=== PATIENT | female | born 2000 | race Caucasian/White ===

== ENCOUNTER → 2024-09-18 09:56 | Outpatient (REF) | payer OTHER, SELFPAY ==
[2024-09-18 14:29] LABS: Hepatitis B Surface Antibody Indeterminate
== END ==
LOC: OHS 09:56
PROVIDERS: ATTENDING PHYSICIAN Nurse Practitioner Family
DX: Z23 Encounter for immunization (principal)
CPT/HCPCS: 36415; 86480; 86706